=== PATIENT | male | born 1980 | race Caucasian/White ===

== ENCOUNTER 2020-02-22 15:12 | Emergency (ER) | payer OTHER ==
[~2020-02-22] VITALS: Ht 185.4 cm; Wt 108.9 kg
[~2020-02-22 15:12] MED LIST: FLOMAX0.4 MG PO; HYDROCODON-ACE1 EAC7 PO; ZOFRAN4 MG PO
[2020-02-22] MEDS ORDERED: KEFLEX500 M1 PO (16:45)
[2020-02-22] MEDS ORDERED: BACTRIM DS TAB1 EACH PO (16:45)
[2020-02-22] MEDS ORDERED: TYLENOL WITH CO1 TA1 PO (16:51)
[2020-02-22 17:03] VITALS: BP 110/70
== END 2020-02-22 17:03 | disposition home or self-care (01) ==
LOC: M.ERS 15:12
DX: S91.032A Puncture wound without foreign body, left ankle, initial encounter (principal); L03.116 Cellulitis of left lower limb; W57.XXXA Bitten or stung by nonvenomous insect and other nonvenomous arthropods, initial encounter; Y93.89 Activity, other specified; Y92.89 Other specified places as the place of occurrence of the external cause; Y99.0 Civilian activity done for income or pay